=== PATIENT | female | born 1995 | race Caucasian/White ===

== ENCOUNTER 2018-07-15 16:08 | Emergency (ER) | payer BC ==
[2018-07-15 16:34] VITALS: RESP 18; O2SAT 100
--- NOTE | 2018-07-15 17:36 | ED PDOC ---
HPI: Psych/Substance Abuse Time Seen by Provider: 07/15/18 16:36 Chief Complaint (Nursing): Psychiatric Evaluation Chief Complaint (Provider): Psychiatric Evaluation History Per: Patient History/Exam Limitations: no limitations Onset/Duration Of Symptoms: Days Current Symptoms Are (Timing): Still Present Associated Symptoms: Anxiety, Depression, Suicidal Thoughts Additional Complaint(s): Mary Johns is a 23 year old female with a past medical history of anxiety, depression, and hypothyroidism who is presenting to the ED for psychiatric ev aluation. Patient states that for several weeks she has been becoming increasingly depressed worsened today. She reports that she takes Lexapro and admits that she is supposed to be taking Wellbutrin but ran out 4 weeks ago. Patient states that she has thoughts of suicide and admits to suicide attempt in the past. She denies any hallucinations or homicidal ideation but admits to alcohol use today while denying any drug use. Patient is tearful in ED and denies any other complaints. PMD: none provided Past Medical History Reviewed: Historical Data, Nursing Documentation, Vital Signs Vital Signs: Last Vital Signs Temp 98.1 F 07/15/18 16:30 Pulse 91 H 07/15/18 16:30 Resp 18 07/15/18 16:30 BP 124/80 07/15/18 16:30 Pulse Ox 100 07/15/18 16:30 - Medical History PMH: Anxiety, Depression, Hypothyroidism - Surgical History Surgical History: No Surg Hx - Family History Family History: States: Other Other Family History: depression and anxiety - Social History Current smoker - smoking cessation education provided: No Alcohol: Other (drinks daily) Drugs: Denies - Allergies Allergies/Adverse Reactions: Allergies Allergy/AdvReac Type Severity Reaction Status Date / Time No Known Allergies Allergy Verified 07/15/18 17:04 Review of Systems ROS Statement: Except As Marked, All Systems Reviewed And Found Negative Psych: Positive for: Depression, Suicidal ideation. Negative for: Other (homicidal ideation, hallucinations) Physical Exam - Reviewed Nursing Documentation Reviewed: Yes Vital Signs Reviewed: Yes - Physical Exam Appears: Positive for: In Acute Distress (psychiatric distress, crying in ED) Head Exam: Positive for: ATRAUMATIC, NORMOCEPHALIC Skin: Positive for: Warm, Dry Eye Exam: Positive for: EOMI, PERRL ENT: Positive for: Other (dry mucous membranes) Cardiovascular/Chest: Positive for: Regular Rate, Rhythm. Negative for: Murmur Respiratory: Positive for: Normal Breath Sounds. Negative for: Wheezing Gastrointestinal/Abdominal: Positive for: Soft. Negative for: Tenderness Back: Positive for: Normal Inspection. Negative for: Decreased ROM Extremity: Positive for: Normal ROM. Negative for: Deformity Lymphatic: Negative for: Adenopathy Neurologic/Psych: Positive for: Alert (but sleepy), Oriented (x3), Mood/Affect (depressed), Other (slightly slurred speech). Negative for: Motor/Sensory Defi cits - Laboratory Results Result Diagrams: 07/15/18 17:40 07/15/18 17:40 - ECG O2 Sat by Pulse Oximetry: 100 (RA) Pulse Ox Interpretation: Normal Medical Decision Making Medical Decision Making: Time: 17:18 Impression: depression, alcohol intoxication, and suicidal ideation Plan: --Aceyaminophen --Alcohol Serum --CMP --Drug Screen --Salicylate --TSH --ED Urine --ED Urine Dipstick --CBC --1:1 Observation Elevated BAL otherwise no clinically significant abnormalities Medically stable for psychiatric evaluation and admission if necessary Evaluated by Geo Almaguer. Stable for dc. Scribe Attestation: Documented by, Christelle Khan acting as a scribe for Lachelle Gant MD. Provider Scribe Attestation: All medical record entries made by the Scribe were at my direction and personally dictated by me. I have reviewed the chart and agree that the record accurately reflects my personal performance of the history, physical exam, medical decision making, and the department course for this patient. I have also personally directed, reviewed, and agree with the discharge instructions and disposition. Disposition - Clinical Impression Clinical Impression: Alcohol intoxication, Depression Counseled Patient/Family Regarding: Studies Performed, Diagnosis, Need For Followup - Disposition Disposition: Routine/Home Disposition Time: 20:10 Condition: STABLE Additional Instructions: PLEASE FOLLOW UP INSTRUCTED BY OUTSIDE SALES CONSULTANT Instructions: Depression, Adult (DC), Alcohol Abuse and Alcoholism (DC) Forms: [facility] ([place])
[2018-07-15 17:45] LABS: BASO % 0.8 % (0.0-2.0); EOS # 0.1 K/uL (0.0-0.7); EOS % 1.7 % (0.0-4.0); HEMOGLOBIN 12.8 g/dL (12.0-16.0); LYMPH # 1.5 K/uL (1.0-4.3); LYMPH % 32.4 % (20.0-40.0); MEAN CELL VOLUME 92.9 fl (81.0-99.0); MEAN CORPUSCULAR HGB CONC 33.4 g/dL (33.0-37.0); MEAN PLATELET VOLUME 8.2 fl (7.2-11.7); MONO # 0.3 K/uL (0.0-0.8); MONO % 6.7 % (0.0-10.0); NEUT # 2.7 K/uL (1.8-7.0); NEUT % 58.4 % (50.0-75.0); NRBC % 0.1 % (0.0-0.0); RBC 4.12 Mil/uL (3.80-5.20); WHITE BLOOD COUNT 4.7 K/uL (4.8-10.8)
[2018-07-15 18:01] LABS: ACETAMINOPHEN < 10.0 ug/ml (10.0-30.0); ALB/GLOB RATIO 1.4 (1.0-2.1); ALBUMIN 4.4 g/dL (3.5-5.0); ALT/SGPT 32 U/L (9-52); AST/SGOT 47 U/L (14-36); BLOOD UREA NITROGEN 13 mg/dl (7-17); GFR NON-AFRICAN AMERICAN > 60; SALICYLATE < 1.0 mg/dl
[2018-07-15 18:09] LABS: BARBITURATES, UR NEGATIVE (NEGATIVE); BENZODIAZEPINES, UR NEGATIVE (NEGATIVE); OPIATES, UR NEGATIVE (NEGATIVE); PHENCYCLIDINE, UR NEGATIVE (NEGATIVE)
[2018-07-15 20:27] VITALS: BP 128/81; PULSE 86; TEMP 98.2
== END 2018-07-15 20:27 | disposition home or self-care (01) ==
LOC: H.ER 16:08
DX: F10.129 Alcohol abuse with intoxication, unspecified (principal); F32.9 Major depressive disorder, single episode, unspecified; E03.9 Hypothyroidism, unspecified; F41.9 Anxiety disorder, unspecified
CPT/HCPCS: 80053; 84443; 85025; 99283; G0480